=== PATIENT | female | born 1975 | race African-American/Black ===

== ENCOUNTER 2017-01-15 11:56 | Emergency (ER) | payer OTHER ==
[~2017-01-15] VITALS: Ht 177.8 cm; Wt 82.3 kg
[~2017-01-15 11:56] MED LIST: BACLOFEN10 MG PO; CAMRESE 0.15-01 EACH PO; CARAFATE100 MG/ML PO; DILAUDID2 MG PO; DILAUDID4 MG PO; FOLIC ACID1 MG PO; HYDREA500 MG PO; HYDROCODON-ACE1 EAC7 PO; KETOROLAC TROME10 MG PO; PRILOSEC20 MG PO; PROMETHAZINE HC25 M1 PO; ZOFRAN ODT4 MG PO
[2017-01-15 12:35] LABS: MCH 36.3 PG (29.0-34.0); MCHC 33.8 G/DL (30.0-36.0); MCV 107.4 FL (83-99); PLATELET COUNT 317 K/uL (156-360); RBC DIS.WIDTH-CV 13.4 % (11.8-14.6); RBC DIS.WIDTH-SD 51.3 % (39-53); WHITE BLOOD COUNT 7.5 K/uL (4.1-10.2)
[2017-01-15 12:47] LABS: CHLORIDE 107 mEq/L (99-109); POTASSIUM 3.7 mEq/L (3.7-5.4); SODIUM 141 mEq/L (136-147)
[2017-01-15 12:49] LABS: GLUCOSE 107 mg/dL (70-99)
[2017-01-15 12:50] LABS: ANION GAP 8 MEQ/L (2-14)
[2017-01-15 12:51] LABS: TOTAL BILIRUBIN 6.7 mg/dL (0.0-1.0)
[2017-01-15 12:52] LABS: ALKALINE PHOSPHATASE 121 IU/L (3-129)
[2017-01-15 12:53] LABS: GFR ESTIMATE (CALCULATED) > 59 mL/min/
[2017-01-15 12:54] LABS: UREA NITROGEN (BUN) 6 mg/dL (9-23)
[2017-01-15 12:56] LABS: LIPASE 15 U/L (1.0-51.0)
[2017-01-15 13:02] LABS: QUANTITATIVE HCG < 4.0 MIU/ML
[2017-01-15 15:39] LABS: ABSOLUTE RETICULOCYTE CT. 0.16 M/uL (0.02-0.08); IMM.RETIC FRACTION 42.1 % (3-19); RETICULOCYTE COUNT 5.8 % (0.5-1.8)
[2017-01-15 17:14] LABS: ADD MIUA? YES; BILIRUBIN NEGATIVE; BLOOD TRACE; COLOR DK YELLOW ((YELLOW)); GLUCOSE (STRIP) NEGATIVE; KETONES NEGATIVE; LEUKOCYTES TRACE; NITRITE NEGATIVE; PROTEIN (STRIP) NEGATIVE; SPECIFIC GRAVITY 1.012 (1.000-1.030)
[2017-01-15 17:27] LABS: BACTERIA NONE SEEN /HPF; EPITHELIAL CELLS 1+ /HPF; MUCUS NONE SEEN /LPF; RED BLOOD CELLS 0-5 /HPF (0-5); UCUL ADDED? NO; WHITE BLOOD CELLS 0-5 /HPF (0-5)
[2017-01-15 18:19] VITALS: BP 115/74
== END 2017-01-15 18:20 | disposition home or self-care (01) ==
LOC: EME 11:56
DX: D57.219 Sickle-cell/Hb-C disease with crisis, unspecified (principal); M79.604 Pain in right leg; M79.605 Pain in left leg
CPT/HCPCS: 80053; 81003; 83690; 84702; 85027; 85045; 99281; 99285; J2270; J2405; J3010; J7030

== ENCOUNTER 2017-02-22 11:25 | Emergency (ER) | payer OTHER ==
[~2017-02-22] VITALS: Ht 177.8 cm; Wt 82.6 kg
[2017-02-22 13:03] LABS: HEMATOCRIT 27.8 % (36.0-46.0); IMM.RETIC FRACTION 34.7 % (3-19); MCH 35.9 PG (29.0-34.0); MCHC 33.8 G/DL (30.0-36.0); MCV 106.1 FL (83-99); MEAN PLAT.VOLUME 9.7 uM^3 (9.5-12.4); NRBC (%) 0.4 /100 WBC (0-0); PLATELET COUNT 217 K/uL (156-360); RBC DIS.WIDTH-CV 12.6 % (11.8-14.6); RBC DIS.WIDTH-SD 49.1 % (39-53); RED BLOOD COUNT 2.62 M/uL (3.80-5.20); RETIC HGB EQUIVALENT 34.5 (28-36); RETICULOCYTE COUNT 6.8 % (0.5-1.8); WHITE BLOOD COUNT 5.5 K/uL (4.1-10.2)
[2017-02-22 13:16] LABS: CHLORIDE 108 mEq/L (99-109); POTASSIUM 3.4 mEq/L (3.7-5.4); SODIUM 142 mEq/L (136-147)
[2017-02-22 13:17] LABS: GLUCOSE 88 mg/dL (70-99)
[2017-02-22 13:19] LABS: ANION GAP 10 MEQ/L (2-14)
[2017-02-22 13:21] LABS: GFR ESTIMATE (CALCULATED) > 59 mL/min/
[2017-02-22 13:22] LABS: UREA NITROGEN (BUN) 7 mg/dL (9-23)
[2017-02-22 16:08] VITALS: BP 150/66
== END 2017-02-22 16:13 | disposition home or self-care (01) ==
LOC: EME 11:25
DX: D57.00 Hb-SS disease with crisis, unspecified (principal); Z88.6 Allergy status to analgesic agent
CPT/HCPCS: 71020; 80048; 81003; 85027; 85045; 99281; 99285; J1885; J2270; J7030

== ENCOUNTER 2017-03-10 13:08 | Inpatient (IN) | payer OTHER ==
[~2017-03-10] VITALS: Ht 177.8 cm; Wt 80.2 kg
[2017-03-10 13:58] LABS: HEMATOCRIT 26.9 % (36.0-46.0); IMM.RETIC FRACTION 44.8 % (3-19); MCHC 34.9 G/DL (30.0-36.0); MCV 105.9 FL (83-99); MEAN PLAT.VOLUME 8.9 uM^3 (9.5-12.4); PLATELET COUNT 220 K/uL (156-360); RBC DIS.WIDTH-SD 53.6 % (39-53); RED BLOOD COUNT 2.54 M/uL (3.80-5.20); RETIC HGB EQUIVALENT 47.1 (28-36); RETICULOCYTE COUNT 5.4 % (0.5-1.8); WHITE BLOOD COUNT 7.9 K/uL (4.1-10.2)
[2017-03-10 14:09] LABS: CHLORIDE 106 mEq/L (99-109); POTASSIUM 4.1 mEq/L (3.7-5.4); SODIUM 139 mEq/L (136-147)
[2017-03-10 14:11] LABS: GLUCOSE 112 mg/dL (70-99)
[2017-03-10 14:13] LABS: ANION GAP 11 MEQ/L (2-14); TOTAL BILIRUBIN 7.5 mg/dL (0.0-1.0)
[2017-03-10 14:15] LABS: ALKALINE PHOSPHATASE 106 IU/L (3-129); GFR ESTIMATE (CALCULATED) > 59 mL/min/
[2017-03-10 14:16] LABS: UREA NITROGEN (BUN) 11 mg/dL (9-23)
[2017-03-10] MEDS ORDERED: DILAUDID4 MG PO (18:28)
[2017-03-10 21:51] VITALS: BP 118/68
[2017-03-11] VITALS (7 sets, daily range): BP systolic 100–127; BP diastolic 53–73
[2017-03-11 09:14] LABS: HEMATOCRIT 23.8 % (36.0-46.0); MCH 36.4 PG (29.0-34.0); MCHC 33.6 G/DL (30.0-36.0); MCV 108.2 FL (83-99); MEAN PLAT.VOLUME 9.3 uM^3 (9.5-12.4); PLATELET COUNT 174 K/uL (156-360); RBC DIS.WIDTH-CV 14.2 % (11.8-14.6); RBC DIS.WIDTH-SD 55.6 % (39-53)
[2017-03-11 09:23] LABS: ALKALINE PHOSPHATASE 79 IU/L (3-129); ANION GAP 8 MEQ/L (2-14); CHLORIDE 107 MEQ/L (99-109); GFR ESTIMATE (CALCULATED) > 59 mL/min/; GLUCOSE 98 mg/dL (70-99); POTASSIUM 3.6 MEQ/L (3.7-5.4); SAMPLE HEMOLYSIS CHECK 0; SAMPLE ICTERIC CHECK 2; SAMPLE LIPEMIA CHECK 0; SODIUM 139 MEQ/L (136-147); TOTAL BILIRUBIN 9.3 MG/DL (0.0-1.0); UREA NITROGEN (BUN) 8 mg/dL (9-23)
[2017-03-11 13:09] LABS: C DIFF TOXIN ND (NEGATIVE)
[2017-03-12 03:26] VITALS: BP 110/76
[2017-03-12 06:16] LABS: EOSINOPHIL (%) 2.1 % (0-5); EOSINOPHIL COUNT 0.1 K/uL (0-0.3); HEMATOCRIT 21.5 % (36.0-46.0); IMMATURE GRANULOCYTE (%) 0.5 % (0.0-0.7); INSTRUMENT ABS NEUTROPHIL CT 1.8 K/uL; LYMPHOCYTE COUNT 1.4 K/uL (1.0-2.8); MCH 36.4 PG (29.0-34.0); MCHC 33.5 G/DL (30.0-36.0); MCV 108.6 FL (83-99); MEAN PLAT.VOLUME 9.1 uM^3 (9.5-12.4); MONOCYTE (%) 11.4 % (3-12); MONOCYTE COUNT 0.4 K/uL (0-0.8); NEUTROPHIL (%) 48.6 % (45-76); NEUTROPHIL COUNT 1.8 K/uL (1.8-6.4); PLATELET COUNT 158 K/uL (156-360); RBC DIS.WIDTH-CV 14.1 % (11.8-14.6); RBC DIS.WIDTH-SD 55.7 % (39-53); RED BLOOD COUNT 1.98 M/uL (3.80-5.20); WHITE BLOOD COUNT 3.8 K/uL (4.1-10.2)
[2017-03-12 06:57] LABS: ANION GAP 5 MEQ/L (2-14); CHLORIDE 107 MEQ/L (99-109); GFR ESTIMATE (CALCULATED) > 59 mL/min/; GLUCOSE 90 mg/dL (70-99); POTASSIUM 3.3 MEQ/L (3.7-5.4); SAMPLE HEMOLYSIS CHECK 0; SAMPLE ICTERIC CHECK 2; SAMPLE LIPEMIA CHECK 0; SODIUM 138 MEQ/L (136-147); UREA NITROGEN (BUN) 4 mg/dL (9-23)
[2017-03-12 08:00] VITALS: BP 113/61
[2017-03-12 08:18] LABS: ALKALINE PHOSPHATASE 71 IU/L (3-129); DIRECT BILIRUBIN 1.1 mg/dL (0.0-0.3)
[2017-03-12 08:20] LABS: TOTAL BILIRUBIN 6.2 MG/DL (0.0-1.0)
[2017-03-12 12:57] LABS: ADD MIUA? YES; BILIRUBIN NEGATIVE; BLOOD SMALL; COLOR YELLOW ((YELLOW)); GLUCOSE (STRIP) NEGATIVE; KETONES NEGATIVE; LEUKOCYTES SMALL; NITRITE NEGATIVE; PROTEIN (STRIP) NEGATIVE; SPECIFIC GRAVITY 1.008 (1.000-1.030)
[2017-03-12 13:32] LABS: BACTERIA 1+ /HPF; EPITHELIAL CELLS 1+ /HPF; MUCUS NONE SEEN /LPF; RED BLOOD CELLS 0-5 /HPF (0-5); UCUL ADDED? NO; WHITE BLOOD CELLS 0-5 /HPF (0-5)
[2017-03-12 16:00] VITALS: BP 124/75
[2017-03-12 19:40] VITALS: BP 105/67
[2017-03-13 00:07] VITALS: BP 118/65
[2017-03-13 04:04] VITALS: BP 123/70
[2017-03-13 07:30] LABS: EOSINOPHIL (%) 2.4 % (0-5); EOSINOPHIL COUNT 0.1 K/uL (0-0.3); HEMATOCRIT 22.7 % (36.0-46.0); IMMATURE GRANULOCYTE (%) 0.6 % (0.0-0.7); INSTRUMENT ABS NEUTROPHIL CT 3.2 K/uL; LYMPHOCYTE COUNT 1.4 K/uL (1.0-2.8); MCHC 34.4 G/DL (30.0-36.0); MCV 107.6 FL (83-99); MONOCYTE (%) 6.1 % (3-12); MONOCYTE COUNT 0.3 K/uL (0-0.8); NEUTROPHIL (%) 62.7 % (45-76); NEUTROPHIL COUNT 3.2 K/uL (1.8-6.4); PLATELET COUNT 179 K/uL (156-360); RBC DIS.WIDTH-CV 13.6 % (11.8-14.6); RBC DIS.WIDTH-SD 53.8 % (39-53); RED BLOOD COUNT 2.11 M/uL (3.80-5.20)
[2017-03-13 07:34] LABS: ANION GAP 8 MEQ/L (2-14); CHLORIDE 103 MEQ/L (99-109); GFR ESTIMATE (CALCULATED) > 59 mL/min/; GLUCOSE 94 mg/dL (70-99); POTASSIUM 3.8 MEQ/L (3.7-5.4); SAMPLE HEMOLYSIS CHECK 0; SAMPLE ICTERIC CHECK 2; SAMPLE LIPEMIA CHECK 0; SODIUM 138 MEQ/L (136-147); TOTAL BILIRUBIN 5.4 MG/DL (0.0-1.0); UREA NITROGEN (BUN) 4 mg/dL (9-23)
[2017-03-13 07:36] LABS: WHITE BLOOD COUNT 5.1 K/uL (4.1-10.2)
[2017-03-13 08:00] VITALS: BP 101/63
[2017-03-13 16:00] VITALS: BP 97/59
[2017-03-13 22:26] VITALS: BP 97/55
[2017-03-13 23:59] VITALS: BP 104/57
[2017-03-14] VITALS (14 sets, daily range): BP systolic 95–131; BP diastolic 6–92
[2017-03-14 09:30] LABS: HEMATOCRIT 26.8 % (36.0-46.0); IMM.RETIC FRACTION 31.4 % (3-19); MCH 35.4 PG (29.0-34.0); MCHC 34.3 G/DL (30.0-36.0); MEAN PLAT.VOLUME 9.4 uM^3 (9.5-12.4); PLATELET COUNT 202 K/uL (156-360); RBC DIS.WIDTH-CV 16.4 % (11.8-14.6); RBC DIS.WIDTH-SD 61.7 % (39-53); RETIC HGB EQUIVALENT 38.5 (28-36); RETICULOCYTE COUNT 5.3 % (0.5-1.8); WHITE BLOOD COUNT 4.2 K/uL (4.1-10.2)
[2017-03-14 09:31] LABS: MCV 103.1 FL (83-99)
[2017-03-14 09:49] LABS: ANION GAP 7 MEQ/L (2-14); CHLORIDE 107 MEQ/L (99-109); GFR ESTIMATE (CALCULATED) > 59 mL/min/; GLUCOSE 81 mg/dL (70-99); POTASSIUM 3.5 MEQ/L (3.7-5.4); SAMPLE HEMOLYSIS CHECK 0; SAMPLE ICTERIC CHECK 1; SAMPLE LIPEMIA CHECK 0; SODIUM 140 MEQ/L (136-147); TOTAL BILIRUBIN 5.2 MG/DL (0.0-1.0); UREA NITROGEN (BUN) 4 mg/dL (9-23)
== END 2017-03-14 17:40 | disposition home or self-care (01) | DRG 812 ==
LOC: EME 13:08 → 5WEST 19:38 → EDOF 19:38 → 5WEST 21:10 → 2EAST 03-11 10:06 → 5WEST 03-11 10:06 → 2EAST 03-11 17:31
PROVIDERS: Emergency Medicine; Family Medicine; Hospitalist; Internal Medicine
PROC: 30233N1 Transfusion of Nonautologous Red Blood Cells into Peripheral Vein, Percutaneous Approach (ICD-10-PCS; principal; 2017-03-14)
DX: D57.00 Hb-SS disease with crisis, unspecified (principal); E87.6 Hypokalemia; E80.6 Other disorders of bilirubin metabolism; R11.2 Nausea with vomiting, unspecified; R19.7 Diarrhea, unspecified; K21.9 Gastro-esophageal reflux disease without esophagitis
CPT/HCPCS: 71020; 80048; 80053; 80076; 81003; 82247; 85025; 85027; 85045; 86870; 86900; 86901; 86905; 86920; 87493; 99281; 99285; G0378; J0780; J1170; J1200; J1650; J1885; J2270; J2405; J3480; J7030; J7050; J7120; P9016

== ENCOUNTER 2017-05-01 10:14 | Emergency (ER) | payer OTHER ==
[~2017-05-01] VITALS: Ht 177.8 cm; Wt 83.5 kg
[~2017-05-01 10:14] MED LIST changes: +PROMETHAZINE12.5 M1 PO; +VICODIN 5-3001 EACH PO
[2017-05-01 13:55] LABS: EOSINOPHIL (%) 0.6 % (0-5); HEMATOCRIT 28.8 % (36.0-46.0); IMM.RETIC FRACTION 35.3 % (3-19); IMMATURE GRANULOCYTE (%) 0.4 % (0.0-0.7); INSTRUMENT ABS NEUTROPHIL CT 4.8 K/uL; LYMPHOCYTE COUNT 1.9 K/uL (1.0-2.8); MCH 36.5 PG (29.0-34.0); MCHC 34.7 G/DL (30.0-36.0); MCV 105.1 FL (83-99); MEAN PLAT.VOLUME 8.9 uM^3 (9.5-12.4); MONOCYTE (%) 4.8 % (3-12); MONOCYTE COUNT 0.3 K/uL (0-0.8); NEUTROPHIL (%) 66.7 % (45-76); NEUTROPHIL COUNT 4.8 K/uL (1.8-6.4); PLATELET COUNT 242 K/uL (156-360); RBC DIS.WIDTH-CV 15.9 % (11.8-14.6); RBC DIS.WIDTH-SD 61.1 % (39-53); RED BLOOD COUNT 2.74 M/uL (3.80-5.20); RETIC HGB EQUIVALENT 44.4 (28-36); WHITE BLOOD COUNT 7.1 K/uL (4.1-10.2)
[2017-05-01 14:04] LABS: CHLORIDE 106 mEq/L (99-109); POTASSIUM 3.5 mEq/L (3.7-5.4); SODIUM 138 mEq/L (136-147)
[2017-05-01 14:06] LABS: GLUCOSE 90 mg/dL (70-99)
[2017-05-01 14:07] LABS: ANION GAP 8 MEQ/L (2-14)
[2017-05-01 14:10] LABS: GFR ESTIMATE (CALCULATED) > 59 mL/min/
[2017-05-01 14:11] LABS: UREA NITROGEN (BUN) 7 mg/dL (9-23)
[2017-05-01 14:19] LABS: QUANTITATIVE HCG < 4.0 MIU/ML
[2017-05-01 16:38] VITALS: BP 121/82
== END 2017-05-01 17:01 | disposition home or self-care (01) ==
LOC: EME 10:14
PROVIDERS: Emergency Medicine
DX: D57.1 Sickle-cell disease without crisis (principal); G43.909 Migraine, unspecified, not intractable, without status migrainosus
CPT/HCPCS: 80048; 81003; 84702; 85025; 85045; 99281; 99285; J1885; J2270; J2405; J7030